=== PATIENT | male | born 1960 | race Caucasian/White ===

== ENCOUNTER → 2017-11-23 12:09 | Outpatient (CLI) | payer BC, SELFPAY ==
[2017-11-23 13:44] LABS: Cholesterol 184 mg/dL (200); High Density Lipoprotein 52 mg/dL; Triglycerides 130 mg/dL; Very Low Density Lipoprotein 26 mg/dL (5-40)
[2017-11-23 13:51] LABS: Hemoglobin A1c 7.7 % (4.2-6.3)
== END ==
PROVIDERS: Family Provider Family Medicine; PCP Family Medicine; Visit Provider Family Medicine
DX: E11.9 Type 2 diabetes mellitus without complications (principal); E78.5 Hyperlipidemia, unspecified
CPT/HCPCS: 36415; 80061; 83036

== ENCOUNTER → 2018-03-05 08:40 | Outpatient (CLI) | payer BC, SELFPAY ==
[2018-03-05 10:05] LABS: Hemoglobin A1c 9.1 % (4.2-6.3)
== END ==
PROVIDERS: Family Provider Family Medicine; PCP Family Medicine; Visit Provider Family Medicine
DX: E11.9 Type 2 diabetes mellitus without complications (principal)
CPT/HCPCS: 36415; 83036

== ENCOUNTER → 2018-06-12 10:25 | Outpatient (CLI) | payer OTHER, SELFPAY ==
[2018-06-12 11:21] LABS: Hemoglobin A1c 7.7 % (4.2-6.3)
== END ==
PROVIDERS: Family Provider Family Medicine; PCP Family Medicine; Referring Provider Family Medicine; Visit Provider Family Medicine
DX: E11.9 Type 2 diabetes mellitus without complications (principal)
CPT/HCPCS: 36415; 83036

== ENCOUNTER → 2018-11-23 08:22 | Outpatient (CLI) | payer OTHER, SELFPAY ==
[2018-11-22 13:23] VITALS: BMI 32.4
[2018-11-23 12:47] LABS: ALB/GLOB Ratio 1.1 RATIO (0.9-2.4); AST(SGOT) 26 U/L (15-37); Alanine Aminotransfer ALT/SGPT 57 U/L (16-61); Albumin, Serum 4.1 g/dL (3.2-5.0); Alkaline Phosphatase 68 U/L (45-117); Anion Gap 7 (5-15); BUN 11 mg/dL (7-18); BUN/Creat Ratio 10.7 RATIO (10-20); Calcium,Total 9.2 mg/dL (8.5-10.1); Chloride 106 mmol/L (98-107); Cholesterol 185 mg/dL (200); Creatinine, Serum 1.03 mg/dL (0.70-1.30); EST Glomerular Filtration Rate 78 mL/min (>60); Est Glom Filt Rate - Afr Amer 95 mL/min (>60); Globulin 3.8 g/dL (2.2-4.2); Glucose 150 mg/dL (74-106); High Density Lipoprotein 52 mg/dL; Potassium 4.7 mmol/L (3.5-5.1); Protein, Total 7.9 g/dL (6.4-8.2); Sodium Level 142 mmol/L (136-145); Triglycerides 102 mg/dL; Very Low Density Lipoprotein 20 mg/dL (5-40)
== END ==
PROVIDERS: Family Provider Family Medicine; PCP Family Medicine; Visit Provider Family Medicine
DX: E11.9 Type 2 diabetes mellitus without complications (principal)
CPT/HCPCS: 36415; 80053; 80061

== ENCOUNTER → 2020-01-29 | Outpatient (CLI) | payer OTHER, SELFPAY ==
[2020-01-29 14:06] VITALS: BMI 32.4
[2020-01-29 15:40] LABS: ALB/GLOB Ratio 1.1 RATIO (0.9-2.4); AST(SGOT) 24 U/L (15-37); Alanine Aminotransfer ALT/SGPT 37 U/L (16-61); Albumin, Serum 4.1 g/dL (3.2-5.0); Alkaline Phosphatase 64 U/L (45-117); Anion Gap 7 (5-15); BUN 20 mg/dL (7-18); BUN/Creat Ratio 18.7 RATIO (10-20); Calcium,Total 9.9 mg/dL (8.5-10.1); Chloride 106 mmol/L (98-107); Cholesterol 159 mg/dL (200); Creatinine, Serum 1.07 mg/dL (0.70-1.30); EST Glomerular Filtration Rate 75 mL/min (>60); Est Glom Filt Rate - Afr Amer 90 mL/min (>60); Globulin 3.8 g/dL (2.2-4.2); Glucose 108 mg/dL (74-106); High Density Lipoprotein 53 mg/dL; Potassium 4.2 mmol/L (3.5-5.1); Protein, Total 7.9 g/dL (6.4-8.2); Sodium Level 142 mmol/L (136-145); Triglycerides 93 mg/dL; Very Low Density Lipoprotein 19 mg/dL (5-40)
[2020-01-29 19:00] LABS: Microalbumin,Random Urine 9.5 mg/L (NO RANGE EST.); Microalbumin:Creatinine Ratio 5.4 mg/g CRE (<30 mg/g CRE)
== END | disposition home or self-care (01) ==
LOC: BIMLAB 14:24
PROVIDERS: PCP Family Medicine; Referring Provider Family Medicine; Visit Provider Family Medicine
DX: E78.5 Hyperlipidemia, unspecified (principal); E11.9 Type 2 diabetes mellitus without complications
CPT/HCPCS: 36415; 80053; 80061; 82043; 82570

== ENCOUNTER → 2020-04-29 | Outpatient (CLI) | payer OTHER, SELFPAY ==
[2020-04-29 14:48] VITALS: BMI 32.4
[2020-04-29 17:18] LABS: Cholesterol 221 mg/dL (200); High Density Lipoprotein 56 mg/dL; Triglycerides 114 mg/dL; Very Low Density Lipoprotein 23 mg/dL (5-40)
== END | disposition home or self-care (01) ==
LOC: BIMLAB 15:13
PROVIDERS: PCP Family Medicine; Referring Provider Family Medicine; Visit Provider Family Medicine
DX: E78.2 Mixed hyperlipidemia (principal)
CPT/HCPCS: 36415; 80061

== ENCOUNTER → 2021-06-09 09:59 | Outpatient (CLI) | payer OTHER, SELFPAY ==
[2021-06-09 12:21] LABS: ALB/GLOB Ratio 0.9 RATIO (0.9-2.4); AST(SGOT) 20 U/L (15-37); Alanine Aminotransfer ALT/SGPT 41 U/L (16-61); Alkaline Phosphatase 64 U/L (45-117); Anion Gap 6 (5-15); BUN 15 mg/dL (7-18); BUN/Creat Ratio 10.3 RATIO (10-20); Calcium,Total 9.9 mg/dL (8.5-10.1); Chloride 102 mmol/L (98-107); Creatinine, Serum 1.45 mg/dL (0.70-1.30); EST Glomerular Filtration Rate 52 mL/min (>60); Est Glom Filt Rate - Afr Amer 63 mL/min (>60); Globulin 4.5 g/dL (2.2-4.2); Glucose 224 mg/dL (74-106); Lipase 85 U/L (73-393); Potassium 4.9 mmol/L (3.5-5.1); Protein, Total 8.5 g/dL (6.4-8.2); Sodium Level 136 mmol/L (136-145)
== END ==
PROVIDERS: PCP Family Medicine; Referring Provider Family Medicine; Visit Provider Family Medicine
DX: E11.9 Type 2 diabetes mellitus without complications (principal); R11.10 Vomiting, unspecified
CPT/HCPCS: 36415; 80053; 83690

== ENCOUNTER → 2021-06-10 08:46 | Outpatient (CLI) | payer OTHER, SELFPAY ==
--- NOTE | 2021-06-10 08:48 | US_ITS ---
STUDY: ABDOMINAL ULTRASOUND - RIGHT UPPER QUADRANT REASON FOR VISIT: Male, 61 years old epigastric pain TECHNIQUE: Ultrasound evaluation of the right upper quadrant was performed with real-time and static lal-scale imaging. TECHNICAL QUALITY: Adequate. COMPARISON: None. FINDINGS: Liver: The liver measures 17.7 cm. There is increased echogenicity consistent with fatty infiltration. Focal fatty sparing is seen adjacent to the gallbladder fossa. The bile ducts are within normal limits. There is hepatic color flow. The direction of portal flow is hepatopetal. There is no demonstrated mass lesion. Gallbladder: Normal distended gallbladder. The gallbladder wall measures 2.5 mm. There is a negative sonographic London''s sign. There is no pericholecystic fluid. There is a solitary echogenic gallstone within the gallbladder. Sludge is seen within the gallbladder lumen. Common Bile Duct (C.B.D.): The common bile duct measures mm. Pancreas: There is nonvisualization of the pancreas due to overlying bowel gas.. Right Kidney: Normal size of the right kidney. The right kidney measures 13.1 cm x 6.5 cm x 6.8 cm. Normal renal cortex. The right cortex measures 2.4 cm. There is no demonstrated renal mass or cyst. There is no right hydronephrosis. US/Gallbladder IMPRESSION: Fatty infiltration of the liver. Solitary gallstone measuring 2.3 cm. Electronically Signed: Ang Landa MD at 14:33 EDT , Service support ,
--- NOTE | 2021-06-10 08:49 | RAD_ITS ---
STUDY: X-RAY - RIGHT SHOULDER REASON FOR EXAM: Male, 61 years old. PAIN TECHNIQUE: 4 view(s) of the shoulder. COMPARISON: None. FINDINGS: Normal glenohumeral articulation. Normal acromioclavicular joint. Normal acromion. Normal humeral head and visualized proximal humerus. The soft tissue structures are unremarkable. There is no demonstrated fracture. Normal visualized pulmonary apex. RAD/Shoulder min 2 Views IMPRESSION: Normal x-ray examination of the shoulder. Electronically Signed: Kieran Nelson MD at 16:47 EDT , Service support ,
== END ==
PROVIDERS: PCP Family Medicine; Referring Provider Family Medicine; Visit Provider Family Medicine
DX: M25.511 Pain in right shoulder (principal); R11.10 Vomiting, unspecified
CPT/HCPCS: 73030; 76705

== ENCOUNTER 2022-03-15 08:00 | Outpatient (RCR) | payer OTHER, SELFPAY ==
--- NOTE | 2022-01-07 16:03 | HP.PTEVAL_ITS ---
Patient's Visit Information KELLY WARNER is a 61 year old M referred to Physical Therapy by Dr. Dawit De La Garza DO with a diagnosis of PAIN IN UNSPECIFIED SHOULDER. Date of Evaluation: 01/07/22 Physical Therapist: Tommy Adams, PT, Cert MDT, OCS - Visit Plan Frequency: 2x /Week Duration: 4 Weeks Plan: PT INTERVENTIONS POSTURAL EX'S ,RTC/SCAPULAR STRENGTHENING ,ROM/FLEXABILITY AND MODALTIES NEEDED - Subjective This 61 y/o male presents to physical therapy with with bilateral shoulder pain. Patient has shoulder pain for ~ 1 year last cutting branches and throwing in dumbstruck. Patient symptoms progressively worse. Pain located global and biceps decried as ache. Patient seen DR recommended PT did x-rays -. Tried some cane ex's for stretching. Aleve over counter. Aggravating factors reaching across body ,to side , and behind back. Alleviating factors rest. Symptoms affects sleeping unable to lay on side. Pain with attempting throw ball. Denies paresthesia/tingling. Patient pain affects QOL and function. SOCIAL: . VOCATION: retired - Pain Bilateral Shoulder Pain Intensity (Out of 10): 7 Pain Intensity Range: 10 Comment: certain movements - Objective POSTURE: rounded shoulders. NUERO: denies paresthesia/tingling. PALAPTION: unremarkable. AROM: bilateral shoulder flexion 140 degrees ,abduction 150 degrees ,ER 90 degrees, IR L3-4. MMT( peak force) : infraspinatus R -17.3, L- 16.7 ,subscapularis R- 17.0,L-21.8 ,supraspinatus R -11.1,L -12.8 ,DETOID R- 12.7,L 13.2. FLEXABILITY: posterior capsule mild/mod. MMT: in. MMT - Special Tests R Shoulder Lift Off Test - Subscapular Tear: Negative R Shoulder Drop Sign - IS Test: Negative R Shoulder Empty Can - SS: Positive R Shoulder Belly Press - SupScap: Negative R Shoulder Neer - Impingement: Positive R Shoulder Sampson Javier - Impingement: Positive R Shoulder Speeds Test - Labrum/Biceps: Negative L Shoulder Drop Sign - IS Test: Negative L Shoulder Empty Can - SS: Positive L Shoulder Belly Press - SupScap: Negative L Shoulder Neer - Impingement: Positive L Shoulder Speeds Test - Labrum/Biceps: Positive - Balance/Special Test Scores Quick DASH Score: 31.8175 - Goals Goal 1:: Patient to be I with HEP for shoulders Goal Time Frame: 4-6 Weeks Goal 2:: Patient to improve posture for ADL's 90% of the time. Goal Time Frame: 4-6 Weeks Goal 3:: Patient to demonstrate 50% improvement with improved function with dexcrease pain. Goal Time Frame: 4-6 Weeks Goal 4:: Patient to improve MMT peak force by 5-10 to improve function with ADLS and reaching with yard and housework. Goal Time Frame: 4-6 Weeks Goal 5:: Patient to improve quick dash by 5 points to improve function with ADLS' and housework Goal Time Frame: 4-6 Weeks - Rehabilitation Potential Physical Therapy Diagnosis: This patient has bilateral shoulder pain with possible impingement with possible tendinosis ,pain ,decrease ROM ,strength RTC and deltoid pain, impairs function with ASDLS and housework tasks reaching thus benefit from skilled PT. Rehabilitation Potential: Good - Anticipated Interventions Patient/Client Instruction: Educate patient on: Condition, Plan of Care For the Purpose of:: To decrease pain, To increase ROM, To improve muscle performance and motor function, To improve ability to perform ADL's, To increase tolerance to activity/condition/position, To improve performance and independence with ADL's, To improve ability of physical actions for home/community/work/leisure, To improve health of tissue, To decrease soft tissue restriction, To increase flexibility/ROM, To prevent re-injury, To improve tolerance to ADL's Therapeutic Exercise to Include: Strength training, Postural training, Flexibilty training, Passive ROM, Active ROM, Scapular Strength/Stabilization Comment: RTC For the Purpose of:: To decrease pain, To increase ROM, To improve muscle performance and motor function, To improve ability to perform ADL's, To increase tolerance to activity/condition/position, To improve ability of physical actions for home/community/work/leisure, To improve health of tissue, To decrease soft tissue restriction, To increase flexibility/ROM, To prevent re-injury, To improve tolerance to ADL's TENS: Yes IF ES: Yes Cryotherapy (ice pack, ice massage): Yes Thermo therapy (hot pack): Yes Ultrasound (thermal/non thermal): Yes For the Purpose of:: To decrease pain, To increase ROM, To improve health of tissue, To decrease soft tissue restriction Thank you for the opportunity to evaluate your patient. For Medicare and Medicare HMO plans, please review the plan of care and approve it. It will need to be FAXED BACK to us at [phone] for Medicare purposes. For Medicare only, by signing this I certify the plan of care. Please let me know if there are questions or concerns regarding this plan of care. Physician Signature: Date:
--- NOTE | 2022-06-23 11:25 | HP.PTDCSUM ---
It has been my pleasure to treat KELLY WARNER referred by Dr. Dawit De La Garza DO, with the diagnosis of PAIN IN UNSPECIFIED SHOULDER for a total of 10 visit(s). Discharge Date: Please see the following information for a summary of their discharge status. Subjective: Bicep soreness on vacation..had a occasional sharp pain. otherwise right shoulder worse than left Bilateral Shoulder Pain Intensity (Out of 10): 0 % Improvement: 75 Objective/Function: RTC/DELTOID 4/5 NO PAIN. ROM IMPROVING WITH LESS PAIN. APPROPRIATE FATIGUE WITH STRENGTHEING Goal 1:: Patient to be I with HEP for shoulders Goal 2:: Patient to improve posture for ADL's 90% of the time. Goal 3:: Patient to demonstrate 50% improvement with improved function with dexcrease pain. Goal 4:: Patient to improve MMT peak force by 5-10 to improve function with ADLS and reaching with yard and housework. Goal 5:: Patient to improve quick dash by 5 points to improve function with ADLS' and housework Plan: D/C If there are questions or concerns regarding this patient's physical therapy, please feel free to call me at [phone]. Thank you for the referral of this patient. Sincerely, Tommy Adams, PT, Cert MDT, OCS Balance/Gait/Functional tests - Balance/Special Test Scores Quick DASH Score: 6.8175
== END 2022-03-15 19:00 | disposition home or self-care (01) ==
LOC: PT 08:00
PROVIDERS: PCP Family Medicine; Referring Provider Family Medicine; Visit Provider Family Medicine
DX: M25.519 Pain in unspecified shoulder (principal)
CPT/HCPCS: 97110; 97162

== ENCOUNTER → 2022-06-22 | Outpatient (CLI) | payer OTHER, SELFPAY ==
[2022-06-22 13:16] LABS: Microalbumin,Random Urine 9.6 mg/L (NO RANGE EST.); Microalbumin:Creatinine Ratio 6.6 mg/g CRE (<30 mg/g CRE)
[2022-06-22 13:25] LABS: ALB/GLOB Ratio 1.1 RATIO (0.9-2.4); AST(SGOT) 40 U/L (15-37); Alanine Aminotransfer ALT/SGPT 80 U/L (16-61); Albumin, Serum 4.1 g/dL (3.2-5.0); Alkaline Phosphatase 70 U/L (45-117); Anion Gap 5 (5-15); BUN 15 mg/dL (7-18); BUN/Creat Ratio 13.9 RATIO (10-20); Calcium,Total 9.6 mg/dL (8.5-10.1); Chloride 103 mmol/L (98-107); Cholesterol 157 mg/dL (200); Creatinine, Serum 1.08 mg/dL (0.70-1.30); EST Glomerular Filtration Rate 73 mL/min (>60); Est Glom Filt Rate - Afr Amer 89 mL/min (>60); Globulin 3.7 g/dL (2.2-4.2); Glucose 230 mg/dL (74-106); High Density Lipoprotein 55 mg/dL; Potassium 4.9 mmol/L (3.5-5.1); Protein, Total 7.8 g/dL (6.4-8.2); Sodium Level 136 mmol/L (136-145); Triglycerides 76 mg/dL; Very Low Density Lipoprotein 15 mg/dL (5-40)
== END | disposition home or self-care (01) ==
LOC: BIMLAB 11:03
PROVIDERS: PCP Family Medicine; Referring Provider Family Medicine; Visit Provider Family Medicine
DX: E11.9 Type 2 diabetes mellitus without complications (principal); E78.5 Hyperlipidemia, unspecified
CPT/HCPCS: 36415; 80053; 80061; 82043; 82570

== ENCOUNTER → 2023-06-13 | Outpatient (CLI) | payer MEDICARE, SELFPAY ==
[2023-06-13 16:43] LABS: Absolute Lymphocyte Count 2.24 X10^3/uL (0.83-4.51); Absolute Neutrophil Count 5.9 X10^3/uL (2.0-7.7); Basophil# 0.08 X10^3/uL; Basophil% 0.8 % (0-1); Eosinophil# 0.23 X10^3/uL; Eosinophils% 2.4 % (0-5); Hematocrit 44.8 % (40-54); Hemoglobin 14.9 g/dL (13.0-16.5); Lymphocyte # 2.24 X10^3/ul (0.83-4.51); Lymphocyte % 23.8 % (19-41); Mean Corp Hgb Conc 33.3 g/dL (32-36); Mean Corpuscular Hgb 31.2 pg (27.0-32.0); Mean Corpuscular Volume 93.7 fL (80-94); Mean Platelet Vol. 11.4 fl (6.2-12.0); Monocyte# 0.94 X10^3/uL; NRBC Flagged by Analyzer 0 % (0-5); Neutrophil # 5.89 X10^3/uL (2.7-7.7); Neutrophil % 62.6 % (47-70); Platelet Count 277 K/mm3 (150-450); RBC Distribution Width CV 12.6 % (11.6-14.6); RBC Distribution Width SD 43.3 fl (35.1-43.9); Red Blood Count 4.78 M/mm3 (4.6-6.2); White Blood Count 9.4 K/mm3 (4.4-11.0)
[2023-06-13 18:39] LABS: AST(SGOT) 27 U/L (15-37); Alanine Aminotransfer ALT/SGPT 56 U/L (16-61); Alkaline Phosphatase 63 U/L (45-117); Anion Gap 6 (5-15); BUN 14 mg/dL (7-18); BUN/Creat Ratio 14.1 RATIO (10-20); Calcium,Total 9.1 mg/dL (8.5-10.1); Chloride 108 mmol/L (98-107); Cholesterol 148 mg/dL (200); EST Glomerular Filtration Rate 80 mL/min (>60); Est Glom Filt Rate - Afr Amer 97 mL/min (>60); Globulin 3.9 g/dL (2.2-4.2); Glucose 115 mg/dL (74-106); High Density Lipoprotein 50 mg/dL; PSA,Total- Diagnostic 0.84 ng/mL (0.0-4.0); Protein, Total 7.9 g/dL (6.4-8.2); Sodium Level 140 mmol/L (136-145); Triglycerides 121 mg/dL; Very Low Density Lipoprotein 24 mg/dL (5-40)
== END | disposition home or self-care (01) ==
PROVIDERS: PCP Family Medicine; Visit Provider Family Medicine
DX: E11.9 Type 2 diabetes mellitus without complications (principal); R35.1 Nocturia; R11.10 Vomiting, unspecified
CPT/HCPCS: 36415; 80053; 80061; 84153; 85025

== ENCOUNTER 2023-06-23 21:47 | Emergency (ER) | payer MEDICARE, SELFPAY ==
[2023-06-23 21:48] VITALS: BP 132/78; PULSE 106; RESP 20; TEMP 36.2; O2SAT 98; BMI 32.4
[2023-06-23 21:50] VITALS: BP 116/68; PULSE 65; RESP 12; TEMP 36.6; O2SAT 99
--- NOTE | 2023-06-23 22:25 | US_ITS ---
STUDY: ABDOMINAL ULTRASOUND - RIGHT UPPER QUADRANT REASON FOR VISIT: Male, 63 years old RUQ pain TECHNIQUE: Ultrasound evaluation of the right upper quadrant was performed with real-time and static lal-scale imaging. TECHNICAL QUALITY: Adequate. COMPARISON: None. FINDINGS: Liver: The liver measures 21 cm. There is increased echogenicity consistent with fatty infiltration. The bile ducts are within normal limits. There is hepatic color flow. The direction of portal flow is hepatopetal. There is no demonstrated mass lesion. Stable 1.5 x 1.7 x 0.9 cm hypoechoic lesion adjacent to the gallbladder probably represents focal fatty sparing. Gallbladder: Normal distended gallbladder. The gallbladder wall measures mm. There is a negative sonographic London''s sign. There is no pericholecystic fluid. Gallstone measures 1.9 cm and sludge. Common Bile Duct (C.B.D.): The common bile duct measures 4 mm mm. Pancreas: Not visualized. Right Kidney: Normal size of the right kidney. The right kidney measures 11.7 cm. Normal renal cortex. The right cortex measures 1.5 cm. There is no demonstrated renal mass or cyst. There is no right hydronephrosis. US/Gallbladder IMPRESSION: Large gallstone and sludge. No evidence of cholecystitis or cholelithiasis. Hepatic steatosis and hepatomegaly with interval enlargement. Electronically Signed: Omar Kerr MD at 0:04 EDT ,
--- NOTE | 2023-06-23 22:38 | EDS_ITS ---
HPI History of Present Illness Chief Complaint: Fever Informant: patient and spouse/S.O. Narrative Narrative: Patient is a 63-year-old male with past medical history of type 2 diabetes and hyperlipidemia. He states that roughly 2 years ago he was diagnosed with g allstones. He states however that his symptoms spontaneously improved and therefore he never had surgery to remove the gallbladder. He reports a few days ago he had pain in the right upper abdomen for approximately 24 hours that felt similar to a gallbladder attack. He states with this he is also been having intermittent fevers reaching 102-103. He states that there is been mild congestion cough and sore throat and that his grandkids have been sick as well. He states he is unsure if his intermittent fevers are related to the same illness as his grandkids are potentially rated to a gallbladder infection and therefore he comes in for evaluation. [facility] Medical History Hearing loss Hyperlipemia Type 2 diabetes mellitus Home Medications aspirin 81 mg chewable tablet PO 11/22/17 [History Last Taken Unknown] multivitamin 1 tab PO QAM 11/22/17 [History Last Taken Unknown] simvastatin 10 mg tablet 10 mg PO QHS #90 tabs 08/10/22 [Rx Last Taken Unknown] glimepiride 4 mg tablet 4 mg PO QAM #90 tabs 12/15/22 [Rx Last Taken Unknown] metformin 500 mg tablet,extended release 24 hr See Rx Instructions .Route .COMPLEX #90 tabs 03/16/23 [Rx Last Taken Unknown] cephalexin 500 mg capsule 500 mg PO TID 7 days #21 caps 06/24/23 [Rx Last Taken Unknown] Allergy/AdvReac Type Severity Reaction Status Date / Time No Known Allergies Allergy Unverified 06/13/23 15:18 Family History Father Cancer stomach Mother Myocardial infarction Hypertension Lupus Hyperlipemia Diabetes Brother Cancer bladder Diabetes Sister Diabetes Surgical History History of tonsillectomy History of vasectomy removal of lump on wrist repair nerve in wrist Status post trigger finger release Social History Smoking Status: Never smoker alcohol intake: never substance use type: does not use what type of physical activity do you participate in: none ROS ROS ED Constitutional Constitutional ED: Reports chills and fever(s) ENT ENT ED: Reports sore throat Cardiovascular Cardiovascular: Denies chest pain Respiratory/Chest Respiratory/Chest: Reports cough; Denies dyspnea Gastrointestinal Gastrointestinal: Reports abdominal pain and nausea; Denies diarrhea or vomiting Genitourinary Genitourinary ED: Denies dysuria Musculoskeletal Musculoskeletal: Denies back pain or myalgias Integumentary Denies rash Neurologic Neurologic: Denies headache(s) Hematologic/Lymphatic Hematologic/Lymphatic: Denies easy bleeding or easy bruising EXAM Physical Exam Const Vital Signs: 06/23/23 21:48 06/23/23 21:50 06/23/23 21:47 Temperature 97.2 F L 97.8 F Temperature Source Temporal Temporal Pulse Rate 106 H 65 Respiratory Rate 20 H 12 Respiratory Effort Normal Respiratory Pattern Normal Blood Pressure 132/78 H 116/68 Blood Pressure Mean 96 84 Pulse Ox 98 99 Oxygen Delivery Method Room Air Room Air Positive well nourished and well developed General Appearance ED: well developed; Negative for pallor HEENT Reports moist mucous membranes HEENT Narrative: Cobblestoning noted in the posterior pharynx consistent with sinus drainage without secondary changes to suggest infection No airway edema or compromise Eyes PERRL and EOMs intact bilaterally General Eye ED: Negative for scleral icterus Neck supple Neck Narrative: No nuchal rigidity or meningeal signs noted Resp normal respiratory effort Resp Narrative: Faint rhonchi noted in the left lower lobe Cardio regular rate and regular rhythm Rate: other Other Details: Heart is regular rate and rhythm without murmurs rubs or gallops GI non-distended GI Narrative: Abdomen is soft and nondistended with normal active bowel sounds. There is pain on palpation in the right upper quadrant without voluntary guarding or rigidity. Negative London sign. No pulsatile mass or fluid wave Auscultation: normoactive bowel sounds Palpation: soft Back/Spine no CVA tenderness Extremity normal to inspection Extremity Narrative: No asymmetric edema no pitting edema negative Homans' sign bilaterally Neuro oriented x3, CN's II-XII intact bilaterally and no sensory deficits noted Sensorium / Orientation: alert Motor Exam: strength 5/5 throughout Psych mental status grossly normal Skin no rashes or lesions noted General Skin Exam: Negative for jaundice or pallor MDM MDM MDM Narrative Medical decision making narrative: Patient presented to the ER afebrile. He reported intermittent fevers for the past 5 days. He also reported a bout of abdominal pain in the right upper quadrant for approximately 24 hours. Differential diagnosis is for biliary colic versus acute cholecystitis versus pancreatitis versus pneumonia versus UTI versus viral infection. Secondary to this basic blood work with urine sample chest x-ray and a gallbladder ultrasound was performed. Blood work shows no leukocytosis or left shift/lactic acidosis. The patient's chest x-ray question is developing infiltrate but he is only had a minimal cough and he is not in respiratory distress or hypoxic therefore this is most likely viral streaking. Ultrasound of the gallbladder showed a large gallstone but no signs of acute cholecystitis. Urine however did show changes concerning for infection and therefore the urine will be sent for culture. At this time he is not showing changes concerning for urosepsis or acute kidney injury so he can be placed on oral antibiotics and discharged home. History & Record Review Discussion w/independent historian: Patient and Significant other Lab Data Attestation: I reviewed the patient's lab results. Labs: Laboratory Results - last 24 hr 06/23/23 06/23/23 22:40 23:48 WBC 10.5 RBC 4.42 L Hgb 13.8 Hct 41.3 MCV 93.4 MCH 31.2 MCHC 33.4 RDW Std Deviation 42.5 RDW Coeff of Wili 12.2 Plt Count 297 MPV 10.9 Immature Gran % (Auto) 0.800 Neut % (Auto) 66.1 Lymph % (Auto) 17.6 L Whitley % (Auto) 10.4 H Eos % (Auto) 4.1 Baso % (Auto) 1.0 Absolute Neuts (auto) 6.9 Absolute Lymphs (auto) 1.85 Nucleated RBC % 0 Sodium 138 Potassium 3.8 Chloride 105 Carbon Dioxide 28.0 Anion Gap 5 BUN 19 H Creatinine 1.10 Estim Creat Clear Calc 73.48 Est GFR (MDRD) Af Amer 86 Est GFR (MDRD) Non-Af 71 BUN/Creatinine Ratio 17.3 Glucose 190 H Lactic Acid 1.3 Calcium 9.0 Total Bilirubin 1.00 Direct Bilirubin 0.31 H AST 14 L ALT 31 Alkaline Phosphatase 61 Total Protein 7.4 Albumin 3.0 L Globulin 4.4 H Lipase 43 Urine Color Yellow Urine Clarity Clear Urine pH 5.0 Ur Specific Bonaparte 1.025 Urine Protein 15 H Urine Glucose (UA) Normal Urine Ketones Negative Urine Occult Blood Negative Urine Nitrite Negative Urine Bilirubin Negative Urine Urobilinogen 4 H Ur Leukocyte Esterase 25 H Urine RBC 0 SEEN Urine WBC 5-10 SEEN Ur Squamous Epith Cells 0-5 SEEN Urine Bacteria 3+ Urine Mucus 0 SEEN Radiography Diagnostic Testing: Clinical Impression(s) from Imaging Studies Gallbladder Ultrasound 06/23/23 22:25 IMPRESSION: Large gallstone and sludge. No evidence of cholecystitis or cholelithiasis. Hepatic steatosis and hepatomegaly with interval enlargement. Electronically Signed: Omar Kerr MD at 0:04 EDT , Chest X-Ray 06/23/23 23:00 IMPRESSION: Possible small right lower lobe and reticular nodular infiltrate Electronically Signed: Omar Kerr MD at 23:16 EDT Reading Location ID and State: [facility] / [place] Tel , Service support , 2 view chest x-ray is interpreted by the emergency medicine physician reveals haziness in the right lower lobe concerning for developing right lower lobe infiltrate without pneumothorax or pleural effusion Discharge Plan Triage Chief Complaint: Fever ED Provider: Dragan Godoy Dx/Rx/DC Orders Clinical Impression: UTI (urinary tract infection), Cholelithiasis, Biliary colic, Type 2 diabetes mellitus Instructions: Urinary Tract Infections in Men, ED Gallstones with Biliary Colic Prescriptions: New cephalexin 500 mg capsule 500 mg PO TID 7 Days Qty: 21 0RF No Action aspirin 81 mg tablet,chewable PO multivitamin tablet 1 tab PO QAM glimepiride 4 mg tablet 4 mg PO QAM Qty: 90 1RF Rx Instructions: administer with breakfast metformin 500 mg tablet extended release 24 hr See Rx Instructions .ROUTE .COMPLEX Qty: 90 2RF Dose Instruction: Take 1 tablet by mouth once daily Rx Instructions: Take 1 tablet by mouth once daily simvastatin 10 mg tablet 10 mg PO QHS Qty: 90 3RF Primary Care Provider: Dawit De La Garza Referrals: Brown,Dawit R, DO [Primary Care Provider] - Activity Restrictions/Additional Instructions: Please take your antibiotic as directed to resolve your UTI. The urine was sent for culture which will tell us what bacteria and antibiotic are appropriate but not for approximately 2 or 3 days. You will only be notified if the antibiotic that was given to you today is not appropriate. You also have a large gallstone noted on ultrasound and therefore talk to general surgery about potential gallbladder removal/cholecystectomy. Eat smaller more frequent meals that are low in fat content to help reduce any further exacerbations from the gallbladder. Return to the ER should you have any further concerns Disposition Disposition: Home, Self Care Discharge Date/Time: 06/24/23 00:43
--- NOTE | 2023-06-23 23:00 | RAD_ITS ---
STUDY: X-RAY CHEST REASON FOR EXAM: Male, 63 years old. fever TECHNIQUE: Frontal and lateral views of the chest. COMPARISON: None. FINDINGS: Possible small reticulonodular infiltrate right lower lung field. There is no demonstrated pleural abnormality. Normal size heart. Normal mediastinum and ro. Normal visualized pulmonary arteries. Normal visualized aortic arch and descending thoracic aorta. Normal visualized thoracic spine. Normal visualized ribs, clavicles, and shoulders. There is no demonstrated abnormality of the visualized soft tissue structures of the upper abdomen. RAD/Chest PA and Lateral IMPRESSION: Possible small right lower lobe and reticular nodular infiltrate Electronically Signed: Omar Kerr MD at 23:16 EDT ,
[2023-06-23 23:06] LABS: Absolute Lymphocyte Count 1.85 X10^3/uL (0.83-4.51); Absolute Neutrophil Count 6.9 X10^3/uL (2.0-7.7); Eosinophil# 0.43 X10^3/uL; Eosinophils% 4.1 % (0-5); Hematocrit 41.3 % (40-54); Hemoglobin 13.8 g/dL (13.0-16.5); Lymphocyte # 1.85 X10^3/ul (0.83-4.51); Lymphocyte % 17.6 % (19-41); Mean Corp Hgb Conc 33.4 g/dL (32-36); Mean Corpuscular Hgb 31.2 pg (27.0-32.0); Mean Corpuscular Volume 93.4 fL (80-94); Mean Platelet Vol. 10.9 fl (6.2-12.0); Monocyte# 1.09 X10^3/uL; Monocyte% 10.4 % (0-10); NRBC Flagged by Analyzer 0 % (0-5); Neutrophil # 6.94 X10^3/uL (2.7-7.7); Neutrophil % 66.1 % (47-70); Platelet Count 297 K/mm3 (150-450); RBC Distribution Width CV 12.2 % (11.6-14.6); RBC Distribution Width SD 42.5 fl (35.1-43.9); Red Blood Count 4.42 M/mm3 (4.6-6.2); White Blood Count 10.5 K/mm3 (4.4-11.0)
[2023-06-23 23:17] LABS: AST(SGOT) 14 U/L (15-37); Alanine Aminotransfer ALT/SGPT 31 U/L (16-61); Alkaline Phosphatase 61 U/L (45-117); Anion Gap 5 (5-15); BUN 19 mg/dL (7-18); BUN/Creat Ratio 17.3 RATIO (10-20); Bilirubin, Direct 0.31 mg/dL (0.00-0.30); Chloride 105 mmol/L (98-107); EST Glomerular Filtration Rate 71 mL/min (>60); Est Glom Filt Rate - Afr Amer 86 mL/min (>60); Estimated Creatinine Clearance 73.48 ml/min; Globulin 4.4 g/dL (2.2-4.2); Glucose 190 mg/dL (74-106); Lipase 43 U/L (13-75); Potassium 3.8 mmol/L (3.5-5.1); Protein, Total 7.4 g/dL (6.4-8.2); Sodium Level 138 mmol/L (136-145)
[2023-06-23 23:26] LABS: Lactic Acid 1.3 mmol/L (0.4-1.9)
[2023-06-23 23:53] LABS: Mucous, Urine 0 SEEN /hpf (<or=2+); Red Blood Cells-Urine 0 SEEN /hpf (0-5)
[2023-06-23 23:54] LABS: Color, Urine Yellow (Yellow); Glucose, Dipstick Normal (Normal); Ketone-Dipstick Negative (Negative); Leukocyte Esterase-Dipstick 25 /ul (Negative); Nitrite-Dipstick Negative (Negative); Occult Blood-Urine Negative /ul (Negative); Protein-Dipstick 15 mg/dl (Negative); Specific Gravity, Urine 1.025 (1.002-1.030); Urine Bilirubin Dipstick Negative (Negative); Urine Clarity Clear (Clear); Urine Urobilinogen 4 mg/dl (Normal)
[2023-06-24 00:01] LABS: Bacteria 3+ /hpf (None Seen); Squamous Epithelial Cells - UA 0-5 SEEN /hpf (0-5); White Blood Cells 5-10 SEEN /hpf (0-5)
[2023-06-24] MEDS: Cephalexin 250 MG Capsule 500 MG PO (00:41)
== END 2023-06-24 00:43 | disposition home or self-care (01) ==
PROVIDERS: Emergency Provider Emergency Medicine; PCP Family Medicine; Visit Provider Emergency Medicine
DX: N39.0 Urinary tract infection, site not specified (principal); E11.9 Type 2 diabetes mellitus without complications; K80.70 Calculus of gallbladder and bile duct without cholecystitis without obstruction; E78.5 Hyperlipidemia, unspecified
CPT/HCPCS: 71046; 76705; 80048; 80076; 81001; 83605; 83690; 85025; 87086; 87088; 87428; 99283; A4216

== ENCOUNTER → 2023-06-26 | Outpatient (CLI) | payer MEDICARE, SELFPAY ==
--- NOTE | 2023-06-26 13:51 | CT_ITS ---
STUDY: CT ABDOMEN AND PELVIS WITH CONTRAST REASON FOR EXAM: Male, 63 years old. Abdominal pain. RADIATION DOSAGE (If Supplied By Facility): CTDIvol = ( 16.08 ) mGy, DLP = ( 1217.09 ) mGycm TECHNIQUE: Transaxial images were obtained from the dome of the diaphragm to the symphysis pubis without oral contrast. IV 100mL Isovue-300 was administered. Sagittal and coronal images were reconstructed. Individualized dose optimization techniques were used for this CT. COMPARISON: Comparison is made with prior ultrasound of the right upper quadrant dated June 23, 2023. FINDINGS: The visualized lung bases are unremarkable. The visualized portions of the heart are within normal limits. There is decreased attenuation of the liver consistent with steatosis. There are multiple gallstones. Thickening of the gallbladder wall with findings suggestive of mild degree of pericholecystic fluid. The common bile duct measures upper normal. Normal spleen. Normal pancreas. Normal bilateral adrenal glands. Normal right kidney. Normal left kidney. Normal visualized stomach. Normal small intestine. There are scattered colonic diverticula consistent with diverticulosis. The appendix is visualized and appears normal. Normal abdominal aorta. Normal inferior vena cava. Normal retroperitoneum. Distended urinary bladder. Normal abdominal wall. Normal osseous structures. CT/Abdomen/Pelvis W IV Cont ONLY IMPRESSION: Gallstones. Thickened gallbladder wall with the findings suggest a very small amount of pericholecystic fluid. Fatty infiltration of the liver. Electronically Signed: Ang Landa MD at 15:26 EST ,
== END | disposition home or self-care (01) ==
LOC: CT 13:50
PROVIDERS: PCP Family Medicine; Referring Provider Family Medicine; Visit Provider Family Medicine
DX: R10.9 Unspecified abdominal pain (principal)
CPT/HCPCS: 74177; Q9967

== ENCOUNTER 2023-07-27 12:18 | Observation (INO) | payer MEDICARE, SELFPAY ==
[2023-07-27] VITALS (17 sets, daily range): BP systolic 125–165; BP diastolic 71–104; PULSE 18–105; RESP 16–18; TEMP 36.3–37.2; O2SAT 92–99; BMI 31.6
--- NOTE | 2023-07-27 | GALL_PTH ---
PATIENT: KELLY WARNER LOC: MS3 U#:[id number] AGE/SX: 63/M ROOM: LA317 RE07/27/[address]: Dr. James Keller MD : 1960 BED: 1 DIS: 07/28/2023 SPEC #: [id number] RECD: 07/27/23 15:27 STATUS: JUAN CARLOS MCKEONAndrea #: [id number] DAY: 07/27/23 00:[address]: James Keller DEPT: SURGICAL PATHOLOGY RECD BY: Abram Lamar ENTERED: 07/28/23 08:43 SP TYPE: ROVERTO ENGLAND DR: Dr. Dawit De La Garza, DO Tissues: Gallbladder, NOS Procedures: Surgery Specimen Level III HEADER OPERATION: Laparoscopic, Cholecystectomy with IOC PRE-OP DIAGNOSIS: Acute cholecystitis TISSUE SUBMITTED: Gallbladder MICROSCOPIC DIAGNOSIS Gallbladder, cholecystectomy: Acute and chronic cholecystitis. See comment. SJ:andrew 07/31/2023 COMMENT Adherent piece of liver parenchymal tissue is also noted. A yellow-clifford calculus is noted. Case has been reviewed in consultation with Dr. Ron who concurs with the above diagnosis. IDC:[id number] MICROSCOPIC DESCRIPTION Slides are reviewed. GROSS DESCRIPTION Received is one container labeled with the patient's name and designated gallbladder. The specimen consists of a gallbladder measuring 8.5 x 3.8 x 3.5 cm. The external surface is smooth and glistening. Focally, it is granular, hemorrhagic and contains cautery artifact. The lumen of the gallbladder contains yellow-green mucoid bile and a single yellow-clifford calculus measuring 5.5 x 3.5 cm. The mucosa is bile-stained and without any mass lesions. The gallbladder wall averages 0.2 to 0.5 cm in thickness and is free of mass lesions. Meat Counter Worker sections of the gallbladder and the cystic duct at margin of resection are submitted in one cassette. / AM:andrew 07/28/2023 TC:2 CPT: 95865
[2023-07-27] MEDS: Lactated Ringers 1,000 ML 15 ML IV (09:41)
--- NOTE | 2023-07-27 09:57 | EKG12_ITS ---
Test Reason : PRE OP Blood Pressure : / mmHG Vent. Rate : 077 BPM Atrial Rate : 077 BPM P-R Int : 160 ms QRS Dur : 084 ms QT Int : 386 ms P-R-T Axes : 030 026 042 degrees QTc Int : 436 ms Normal sinus rhythm Normal ECG No previous ECGs available Confirmed by LOREE RICHARDSON, CATE ([id number]), editorial project manager AQUILINO ABBOTT ([id number]) on 08/01/2023 8:50:33 A M Referred By: James Keller Confirmed By:STEPHAN RALPH MD
--- NOTE | 2023-07-27 10:04 | PCM.HP.BLA ---
History and Physical Date of Admission: 07/27/23 Intake Vital Signs 06/23/2321:48 07/05/2315:03 Height 6 ft 6 ft 1 in Weight: 238 lb 4 oz BMI 31.4 BP 125/79 H Blood Pressure Location Lt brachial Position Sitting Respiration 18 Pulse 98 Pulse Source Monitor Temp 97.9 F Temp Source Temporal Pulse Oximetry (%) 98 Oxygen Delivery Method room air Intake Visit Reasons: GALLBLADDER Chief Complaint: gallbladder Accompanied by: Is patient in pain?: No Allergies No Known Allergies Allergy (Unverified 07/05/23 15:04) Medications aspirin 81 mg chewable tablet PO 11/22/17 [History Confirmed 07/05/23] multivitamin 1 tab PO QAM 11/22/17 [History Confirmed 07/05/23] simvastatin 10 mg tablet 10 mg PO QHS #90 tabs 08/10/22 [Rx Confirmed 07/05/23] glimepiride 4 mg tablet 4 mg PO QAM #90 tabs 12/15/22 [Rx Confirmed 07/05/23] metformin 500 mg tablet,extended release 24 hr See Rx Instructions .Route .COMPLEX #90 tabs 03/16/23 [Rx Confirmed 07/05/23] cephalexin 500 mg capsule 500 mg PO TID 7 days #21 caps 06/24/23 [Rx Confirmed 07/05/23] PFSH Medical History (Updated 07/05/23 @ 15:[address] James Keller MD) Gallstones Hearing loss Hyperlipemia Type 2 diabetes mellitus Surgical History History of tonsillectomy History of vasectomy removal of lump on wrist repair nerve in wrist Status post trigger finger release Family History Father Cancer stomachMother Myocardial infarction Hypertension Lupus Hyperlipemia DiabetesBrother Cancer bladder DiabetesSister Diabetes Social History Smoking Status: Never smoker alcohol intake: never substance use type: does not use what type of physical activity do you participate in: none HPI HPI HPI: Patient is a 63-year-old male here with gallbladder issues. Patient has had a few attacks in the epigastric region which his primary doctor believes is related to his gallbladder. Patient was recently in the emergency room and had an ultrasound showing gallstones. Patient is in no pain currently. He denies any nausea or vomiting. He denies any fevers or chills. ROS General General: No weight change, appetite, fatigue, colon cancer, breast cancer or weakness HEENT HEENT: No difficulty swallowing, eye injury, eye surgery, swollen glands or hoarseness Endo Endocrine: Yes diabetes mellitus; No thyroid disease, thyroid cancer, Hair loss, heat intolerance or cold intolerance Skin Skin: No rash or changing moles Breast Breast: No left breast lump, right breast lump, nipple discharge, breast pain, abnormal mammogram, abnormal US or breast enlargement Musc Musculoskeletal: No back problems, arthritis, rheumatoid arthritis, gout or joint pain Cardio Cardiovascular: No murmur, pacemaker, heart disease, atrial fibrillation, high blood pressure, heart attack, heart stent, palpitations, shortness of breat with exertion or chest pain Psych Psychiatric: No depression, anxiety or hearing voices Resp Respiratory: No shortness of breath, No sleep apnea, No cough, No COPD, No asthma, No emphysema and No wheezing Gastro Gastrointestinal: No abdominal pain, No nausea or vomiting, No diarrhea, No constipation, No blood in stool, No acid reflux, No hemorrhoids, No ulcers, Yes gallbladder problem and No black,tarry stools Uche Hematologic: Yes blood thinners, No blood disorders, No bleeding, No anemia and No blood clots Additional Details: baby aspirin Neuro Neurologic: No system reviewed and no additional complaints, except as documented, No as per HPI, No abnormal gait, No abnormal hearing, No abnormal movements, No abnormal speech, No behavioral changes, No burning sensations, No confusion, No convulsions, No disequilibrium, No dizziness, No localized weakness, No frequent falls, No headache(s), No lack of coordination, No loss of vision, No memory loss, No numbness, No other visual disturbances, No radicular pain, No restless legs, No sensory deficit, No syncope, No tingling, No tremor(s), No weakness and No other Exam Const General: cooperative Orientation: alert and oriented x3 HENMT Head: normal to inspection Neck Neck: normal visual inspection and full ROM Chest Chest palpation & inspection: normal inspection of the chest Resp Effort & Inspection: normal respiratory effort Auscultation: clear to auscultation bilaterally Cardio Rate: regular rate Rhythm: regular rhythm GI Inspection: non-distended Palpation: soft and nontender Skin General: no rashes or lesions noted Neuro General: patient alert and patient oriented x3 Extrem General: full ROM Psych Appearance: grossly normal Mental Status: mental status grossly normal Assessment and Plan Assessment and Plan (1) Cholelithiasis: Status: Inactive Qualifiers: Cholelithiasis location: gallbladder Cholecystitis presence: with cholecystitis Cholecystitis acuity: chronic Biliary obstruction: without biliary obstruction Qualified Code(s): K80.10 - Calculus of gallbladder with chronic cholecystitis without obstruction Plan: The patient had an ultrasound that showed stones in the gallbladder wall in the emergency room. Subsequently he had a CT scan which showed some mild thickening and pericholecystic fluid with large stone in the gallbladder. I discussed laparoscopic cholecystectomy with him. He is not tender currently but there is suggestion of a chronic cholecystitis and I recommended having cholecystectomy. I discussed the procedure in detail with the patient. I discussed the risks, benefits, and alternatives of the procedure. I discussed the risks including but not limited to bleeding, infection, injury to surrounding organs such as the liver, bile duct, bowels. I did discuss the possibility of having to convert to an open procedure as well as the possibility that if any injuries occurred this may necessitate further surgery at a tertiary care center. James Keller MD Pager: [facility] [address] [place] [address], [address] [place] [address] Office: I have examined the patient and the H&P has been reviewed. There are no clinical changes since date of exam.
[2023-07-27 10:08] LABS: Bedside Glucose 129 mg/dL (74-106)
[2023-07-27] MEDS: Cefotetan 2 GM in 0.9% NS 100 ML IV (10:45)
--- NOTE | 2023-07-27 11:01 | RAD_ITS ---
STUDY: INTRAOPERATIVE CHOLANGIOGRAM. REASON FOR EXAM: Male, 63 years old. LAP HANSEL WITH IOC FLUOROSCOPY TIME (if supplied): ( 35 seconds ) minutes/seconds. 23.84 mGy TECHNIQUE: An intraoperative cholangiogram was performed by the surgeon. Imaging was submitted. COMPARISON: None. FINDINGS: Mild dilatation of the common bile duct. Free flow of contrast into the duodenum. RAD/Cholangiogram/ O R,Initial IMPRESSION: Mildly dilated common bile duct. Electronically Signed: Ang Landa MD at 12:57 EST ,
[2023-07-27] MEDS: Bupivacaine 0.25% 30 ML Vial (12:00)
--- NOTE | 2023-07-27 12:20 | OP.PCM_ITS ---
Report of Operation Date of Procedure: 07/27/23 Pre-Operative Diagnosis: Cholelithiasis Post-Operative Diagnosis: chronic cholecystitis Surgery/Procedure Performed:: Laparoscopic cholecystectomy with cholangiogram Description of Surgical Findings:: Very inflamed gallbladder with adhesions to the surrounding fat. Possible dilated common duct on cholangiogram. Type of Anesthesia: General/Regional Specimen's removed: Gallbladder Estimated Blood Loss (mL): 50 Description of Procedure: After obtaining informed consent patient was brought back to the operating room. General anesthesia was induced. The abdomen was prepped and draped in usual sterile fashion. A small midline incision was made superior to the umbilicus and deepened to the level of fascia. The fascia was elevated and incised. Next the peritoneum was elevated and incised in the same fashion. Finger sweep was performed and the Bray trocar was placed into the abdomen. The balloon was inflated. The abdomen was inflated to 15 mmHg. Next a camera was introduced into the abdomen and the abdomen was inspected. Next under direct visualization three 5-mm ports were placed one subxiphoid and 2 subcostal. The gallbladder was very inflamed and there were adhesions from the surrounding fat. These were taken down. The gallbladder was unable to grasped sinus contents were aspirated using aspirating needle. Next the gallbladder was elevated and retracted toward the right shoulder. The peritoneum was stripped from the gallbladder. The infu ndibulum was located and retracted laterally. Next the triangle of Calot was dissected and the cystic duct and cystic artery were identified. Cholangiograms were performed. The Batista clamp was used to clamp across the infundibulum and the catheter needle was inserted into the gallbladder. Under fluoroscopy contrast was instilled into the gallbladder and the common duct, cystic duct as well as proximal hepatic ducts were identified. There was good filling of the duodenum. There were no filling defects noted in the common bile duct. The clamp was removed as well as the needle and the infundibulum was grasped once more. Three hemolock clips were placed across the cystic duct. The cystic duct was then divided leaving 2 clips on the stump. The cystic artery was clipped and divided in the same fashion. The hook cautery was then used to take the gallbladder off of the gallbladder bed. Hemostasis was obtained. Argon beam was used as well as Surgicel powder and electrocautery. There was significant inflammation in the gallbladder fossa with subsequent bleeding when the gallbladder was taken off. Gallbladder fossa was irrigated and no active bleeding or bile leakage was noted. Next the camera was introduced in the subxiphoid port. An Endopouch bag was placed through the umbilical port and the gallbladder was placed into it. The gallbladder was then removed through the um bilical incision. The camera was then reinserted through the umbilical port. The gallbladder fossa was inspected once more and noted to be hemostatic with no leaking bile. The abdomen was suctioned dry. The 5 mm ports were removed under direct visualization. The umbilical port was then removed and the air was removed from the abdomen. Next using an 0 Vicryl suture the umbilical fascia was closed in a [id number] fashion. The umbilical port site was irrigated local anesthetic was administered to all the incisions. All the incisions were closed with interrupted subcuticular 4-0 Monocryl sutures followed by Steri- Strips and dressings. The patient was awoken and taken to PACU in stable condition. Due to the bleeding during the case and the amount of inflammation I will admit him for observation to the floor following surgery. Admit VTE Documentation VTE Mechan Device Prophylaxis: SCD's
[2023-07-27 14:45] LABS: Bedside Glucose 176 mg/dL (74-106)
[2023-07-27] MEDS: Acetaminophen 325 MG Tablet 650 MG PO ×2 (15:11→20:03)
[2023-07-27] MEDS: 0.9% Normal Saline (1000mL) 1,000 ML 60 ML IV (15:12)
[2023-07-27] MEDS: oxyCODONE 5 MG Tablet PO ×2 (15:12→20:04)
[2023-07-27] MEDS: hydrALAZINE 20 MG/ML Vial 10 MG IV (17:26)
[2023-07-27] MEDS: 0.9% Saline Lock 10 ML Syringe IV (17:26)
[2023-07-28] MEDS: Acetaminophen 325 MG Tablet 650 MG PO ×3 (00:01→12:48)
[2023-07-28 01:56] VITALS: O2SAT 90
[2023-07-28 02:00] VITALS: BP 128/75; PULSE 92; RESP 16; TEMP 36.8; O2SAT 96
[2023-07-28 05:33] LABS: Absolute Lymphocyte Count 1.26 X10^3/uL (0.83-4.51); Absolute Neutrophil Count 12.5 X10^3/uL (2.0-7.7); Basophil# 0.03 X10^3/uL; Basophil% 0.2 % (0-1); Hematocrit 40.5 % (40-54); Hemoglobin 13.7 g/dL (13.0-16.5); Lymphocyte # 1.26 X10^3/ul (0.83-4.51); Lymphocyte % 8.2 % (19-41); Mean Corp Hgb Conc 33.8 g/dL (32-36); Mean Corpuscular Hgb 31.1 pg (27.0-32.0); Mean Platelet Vol. 11.4 fl (6.2-12.0); Monocyte# 1.61 X10^3/uL; Monocyte% 10.4 % (0-10); NRBC Flagged by Analyzer 0 % (0-5); Neutrophil % 80.8 % (47-70); POSITIVE DIFFERENTIAL YES; Platelet Count 222 K/mm3 (150-450); RBC Distribution Width SD 43.8 fl (35.1-43.9); White Blood Count 15.5 K/mm3 (4.4-11.0)
[2023-07-28 05:44] LABS: Differential Indicated SCAN CRITERIA MET
[2023-07-28 06:07] LABS: Anion Gap 7 (5-15); BUN 15 mg/dL (7-18); BUN/Creat Ratio 13.9 RATIO (10-20); Calcium,Total 8.2 mg/dL (8.5-10.1); Chloride 105 mmol/L (98-107); Creatinine, Serum 1.08 mg/dL (0.70-1.30); EST Glomerular Filtration Rate 73 mL/min (>60); Est Glom Filt Rate - Afr Amer 88 mL/min (>60); Estimated Creatinine Clearance 77.06 ml/min; Glucose 162 mg/dL (74-106); Potassium 4.1 mmol/L (3.5-5.1); Sodium Level 137 mmol/L (136-145)
[2023-07-28 06:11] LABS: Differential Comment SCANNED
[2023-07-28 06:14] VITALS: BP 137/87; PULSE 86; RESP 16; TEMP 36.6; O2SAT 95
[2023-07-28] MEDS: 0.9% Normal Saline (1000mL) 1,000 ML 60 ML IV (06:46)
--- NOTE | 2023-07-28 08:34 | PN.SURG_ITS ---
Subjective Subjective Patient had straight catheterization overnight. On that he feels well and is tolerating some regular diet. Objective Data Objective Data Vital Signs: Vital Signs Temp Pulse Resp BP Pulse Ox O2 Del Method O2 Flow Rate 98 F 86 16 137/87 H 95 Room Air 2 07/28/23 06:14 07/28/23 06:14 07/28/23 06:14 07/28/23 06:14 07/28/23 06:14 07/28/23 06:14 07/28/23 02:00 Oxygen Flow Rate (L/min) 2 Oxygen Delivery Method Room Air Weight: 240 lb 4.862 oz Body Mass Index (BMI) 31.6 Intake & Output: Intake and Output for Last 24 Hours 07/26/23 07/27/23 07/28/23 23:59 23:59 23:59 Intake Total 422.75 / 622.75 1134 / 1134 Output Total 1200 / 1200 1150 / 1150 Balance -777.25 / -577.25 -16 / -16 Lab / Micro Data 07/28/23 04:44 07/28/23 04:44 Labs: Laboratory Results - last 24 hr 07/27/23 09:21: POC Glucose 129 H 07/27/23 14:27: POC Glucose 176 H 07/28/23 04:44: WBC 15.5 H, RBC 4.40 L, Hgb 13.7, Hct 40.5, MCV 92.0, MCH 31.1, MCHC 33.8, RDW Std Deviation 43.8, RDW Coeff of Wili 13.0, Plt Count 222, MPV 11.4, Immature Gran % (Auto) 0.400, Neut % (Auto) 80.8 H, Lymph % (Auto) 8.2 L, [place] % (Auto) 10.4 H, Eos % (Auto) 0.0, Baso % (Auto) 0.2, Absolute Neuts (auto) 12.5 H, Absolute Lymphs (auto) 1.26, Nucleated RBC % 0, Differential Comment SCANNED, Diff Path Review December, Sodium 137, Potassium 4.1, Chloride 105, Carbon Dioxide 25.0, Anion Gap 7, BUN 15, Creatinine 1.08, Estim Creat Clear Calc 77.06, Est GFR (MDRD) Af Amer 88, Est GFR (MDRD) Non-Af 73, BUN/Creatinine Ratio 13.9, Glucose 162 H, Calcium 8.2 L Radiography Diagnostic Testing: Radiology Impression Cholangiogram 07/27/23 11:01 IMPRESSION: Mildly dilated common bile duct. Electronically Signed: Ang Landa MD at 12:57 EST , Physical Exam Const oriented x3 and no apparent distress Resp normal respiratory effort GI soft to palpation and non-tender Assessment & Plan Assessment/Plan (1) Acute cholecystitis: PLAN: Patient is doing well after laparoscopic cholecystectomy. He was kept due to bleeding during the case to observe hemoglobin in the morning. His hemoglobin is stable today. He had some urinary retention overnight and had a straight catheterization. He urinated again and then postvoid residual was done and it was very large. I will start the patient on Flomax and give him a prescription. He can follow-up with urology as an outpatient. James Keller MD Pager: [facility] [address] [place] [address], [address] [place] [address] Office:
--- NOTE | 2023-07-28 08:35 | DCINST_ITS ---
Discharge Instructions Procedure Gallbladder Diet Discharge Diet: Light diet - advance as tolerated Activity Discharge Activity: May Not Drive (for 2-3 days or while taking narcotic pain medications.) and - (Do not drive, work heavy equipment or sign legal documents for 24 hours.) May shower in (days): 1 Lifting Restrictions: 20 lbs for 2 weeks Additional Activity Instructions:: Pain medication may cause nausea. You should typically eat light foods as you take your pain medications. Pain medication may also cause constipation. If this is a problem for you, please discuss with your doctor. Dressing / Incision Call your doctor if your incision/area has: Continuous Slow Oozing, Sudden Increased Bleeding, Increased Pain/ Swelling, Increased Redness and Foul Smelling Discharge Call your doctor if you observe: Fever of 101 or Higher Suture Line Care: Avoid Pulling/Pushing and Avoid Pinching/Bending Remove Dressing in: 2 days Additional Dressing/Incision Instructions:: Leave operative bandaids on for 2 days. When you remove dressing, leave Steri-Strips on until your follow-up appointment, or until the Steri-Strips fall off on their own. Follow Up Care Please Follow Up With: James Keller MD When: Please call to schedule 2 week follow up appointment. [phone] Test Results: Test results from this visit will be discussed in further detail at your follow- up appointment, if applicable. Pending Tests Upon Discharge: Referral being made to urologist for retention Discharge Plan Admission Admit Date/Time: 07/27/23 12:18 Attending Provider: James Keller Primary Care Provider: Dawit De La Garza Discharge Orders/Prescriptions Prescriptions: New acetaminophen 325 mg Tablet 650 mg PO Q4H PRN PRN (Reason: Pain 1-10 Or Fever) Qty: 0 0RF oxycodone 5 mg Tablet 5 - 10 mg PO Q4H PRN PRN (Reason: Pain Score 4-10) 5 Days Qty: 20 0RF tamsulosin 0.4 mg Capsule 0.4 mg PO DAILY@1730 20 Days Qty: 20 0RF Continued aspirin 81 mg tablet,chewable 1 tab PO DAILY Patient Comments: PT TO STOP 5 DAYS PRIOR TO SURGERY multivitamin tablet 1 tab PO QAM glimepiride 4 mg tablet 4 mg PO QAM Qty: 90 1RF Rx Instructions: administer with breakfast metformin 500 mg tablet extended release 24 hr See Rx Instructions .ROUTE .COMPLEX Qty: 90 2RF Dose Instruction: Take 1 tablet by mouth once daily Rx Instructions: Take 1 tablet by mouth once daily simvastatin 10 mg tablet 10 mg PO QHS Qty: 90 3RF Referrals / Follow Up: Dawit De La Garza, [Primary Care Provider] - Disposition Disposition (needs filled in before D/C Order can be placed): Home, Self Care
[2023-07-28] MEDS: Tamsulosin HCl 0.4 MG Capsule 0.8 MG PO (08:55)
[2023-07-28 09:03] VITALS: BP 131/74; PULSE 97; RESP 16; TEMP 36.9; O2SAT 94
--- NOTE | 2023-07-28 09:15 | NURSING ---
Called [facility] to let them know pt wanted prescriptions sent to room when they are ready.
[2023-07-28] MEDS: oxyCODONE 5 MG Tablet PO (10:07)
--- NOTE | 2023-07-28 12:15 | NURSING ---
Pt was sleeping but did awaken. Patients states he will be eating lunch and then they will go home after that. [facility] delivered Todd's prescriptions to his room.
[2023-07-28 12:45] VITALS: BP 128/78; PULSE 67; RESP 18; O2SAT 91
--- NOTE | 2023-07-28 13:45 | PHA.DC.MC.R ---
Pharmacy [facility] has performed discharge medication reconciliation and counseling for this patient. The patient's discharge medication list was reviewed for discrepancies and discrepancies were resolved. The patient was counseled on the following discharge medications and changes in medications for homegoing were reviewed. 1. TYLENOL 2. OXYCODONE 3. FLOMAX The Reason for Use, instructions for use, and potential side effects were reviewed for all new medications. The patient's questions regarding all of their medications were answered. The patient was able to verbally demonstrate an understanding of their discharge medications. Medications at Discharge Home Medications aspirin 81 mg chewable tablet 1 tab PO DAILY 11/22/17 multivitamin 1 tab PO QAM 11/22/17 simvastatin 10 mg tablet 10 mg PO QHS #90 tabs 08/10/22 glimepiride 4 mg tablet 4 mg PO QAM #90 tabs 12/15/22 metformin 500 mg tablet,extended release 24 hr See Rx Instructions .Route .COMPLEX #90 tabs 03/16/23 acetaminophen 325 mg tablet 650 mg (2 x 325 mg) PO Q4H PRN PRN Pain 1-10 Or Fever #0 tabs 07/28/23 oxycodone 5 mg tablet 5 - 10 mg (1 - 2 x 5 mg) PO Q4H PRN PRN Pain Score 4-10 5 days #20 tabs 07/28/23 tamsulosin 0.4 mg capsule 0.4 mg PO DAILY@1730 20 days #20 caps 07/28/23
[2023-07-28 13:53] LABS: Pathologist Review Reviewed
== END 2023-07-28 13:03 | disposition home or self-care (01) ==
LOC: SDC 15:08 → MS3 15:08
PROVIDERS: Admitting Provider Surgery; PCP Family Medicine; Referring Provider Surgery; Visit Provider Surgery
PROC: (CPT 47610; principal; 2023-07-27 10:15)
DX: K80.12 Calculus of gallbladder with acute and chronic cholecystitis without obstruction (principal); E11.9 Type 2 diabetes mellitus without complications; E78.00 Pure hypercholesterolemia, unspecified; Z79.84 Long term (current) use of oral hypoglycemic drugs; Z79.82 Long term (current) use of aspirin; Z79.899 Other long term (current) drug therapy
CPT/HCPCS: 47563; 00790; 36415; 74300; 76000; 80048; 82962; 85025; 88304; 93005; 94668; 96374; 99221; J7030; J7120; A4216; G0378; J2405

== ENCOUNTER → 2023-11-28 | Outpatient (CLI) | payer MEDICARE, SELFPAY ==
[2023-11-28 10:17] LABS: Mucous, Urine 0 SEEN /hpf (<or=2+)
[2023-11-28 12:45] LABS: Color, Urine Yellow (Yellow); Glucose, Dipstick Normal (Normal); Ketone-Dipstick Negative (Negative); Leukocyte Esterase-Dipstick 500 /ul (Negative); Nitrite-Dipstick Positive (Negative); Occult Blood-Urine 25 /ul (Negative); Protein-Dipstick 30 mg/dl (Negative); Urine Bilirubin Dipstick Negative (Negative); Urine Clarity Cloudy (Clear); Urine Urobilinogen 1 mg/dl (Normal)
[2023-11-28 12:56] LABS: Red Blood Cells-Urine 0-5 SEEN /hpf (0-5); Squamous Epithelial Cells - UA 0-5 SEEN /hpf (0-5)
[2023-11-28 12:57] LABS: Bacteria 1+ /hpf (None Seen); White Blood Cells 25-50 SEEN /hpf (0-5)
== END | disposition home or self-care (01) ==
LOC: BIMLAB 10:16
PROVIDERS: PCP Family Medicine; Visit Provider Family Medicine
DX: R82.90 Unspecified abnormal findings in urine (principal)
CPT/HCPCS: 81001

== ENCOUNTER 2024-03-04 10:57 | Emergency (ER) | payer MEDICARE, SELFPAY ==
[2024-03-04 10:58] VITALS: BP 160/103; PULSE 90; RESP 19; TEMP 35.6; O2SAT 99; BMI 32.0
--- NOTE | 2024-03-04 11:22 | CT_ITS ---
INDICATION: right flank pain EXAMINATION: CT ABDOMEN AND PELVIS WITHOUT CONTRAST - CT Abdomen And Pelvis W/O Contrast Injection TECHNIQUE: Helically acquired images were obtained of the abdomen and pelvis without oral or IV contrast. The protocol utilizes one or more of the following dose reduction techniques: automated exposure control, adjustment of mA and/or kV according to patient size,and/or use of iterative reconstruction technique. IV Contrast dosage and agent: None. Oral contrast: None. RADIATION DOSAGE (If Supplied By Facility): CTDIvol = ( 17.12 ) mGy, DLP = ( 958.25 ) mGycm COMPARISON: Prior study dated: 06/26/2023 FINDINGS: LOWER CHEST: Lung bases are clear. No cardiomegaly or pericardial effusion. LIVER: Diffuse hepatic steatosis No focal mass. GALLBLADDER AND BILIARY TREE: Status post cholecystectomy. No intra- or extrahepatic biliary ductal dilation. PANCREAS: No focal cystic or solid mass. SPLEEN: Normal size without focal cystic or solid mass. ADRENAL GLANDS: No nodules. KIDNEYS AND URETERS: Normal renal size and position. No hydronephrosis. PERITONEUM: No ascites or free air. No other fluid collection. BOWEL: No evidence of acute appendicitis. No stomach or bowel distension. Fecal retention. No evidence of acute diverticulitis. LYMPH NODES: No enlarged mesenteric or retroperitoneal lymph nodes. VESSELS: Aorta is non-dilated. URINARY BLADDER: Unremarkable. REPRODUCTIVE ORGANS: No pelvic masses. ABDOMINAL WALL: Very small umbilical hernia containing fat. BONES: No lytic or blastic abnormality. CT/Abdomen/Pelvis without Cont IMPRESSION: 1. No focal acute inflammatory process. 2. Status post cholecystectomy. 3. Hepatic steatosis. Electronically Signed: Robert Franklin MD at 12:37 EDT ,
--- NOTE | 2024-03-04 11:24 | ED.VIS.BACK ---
HPI History of Present Illness Chief Complaint: Back Informant: patient and spouse/S.O. Narrative Narrative: 63-year-old male started having right low back pain that he noticed relatively suddenly in the middle of the night 5 in the morning about 5 days ago. It has been steady, not colicky, and associated with no nausea or vomiting. Sometimes the pain is associated with some mild numbness in the right proximal thigh/groin but there is no pain down the right lower extremity like sciatica he has experienced on the left side at times, that is not there presently. He states occasionally he has noticed some discomfort in the right lower quadrant but for the most part he has had no abdominal pain. No urinary symptoms or troubles but states he has noticed that has been cloudy lately, and he told his doctor this during a routine visit last week. No problems with bowel movements. No jaundice, rashes, fevers or chills. He states during the day for the most part he can undergo normal activities and he does not notice it nearly as much as he does when he is lying down to sleep which seems to make it worse. He is not doing any motions to trigger the pain, but if he leans a certain way while lying down seems to improve it, specifically when he leans to the left. When he is sitting, the pain is not quite as bad. [facility] Medical History Wears hearing aid Wears glasses Diabetes High cholesterol TIA (transient ischemic attack) Non-smoker Gallstones Hyperlipemia Hearing loss Type 2 diabetes mellitus Home Medications ?Medication ?Instructions ?Recorded ?Last Taken ?Type aspirin 81 mg chewable tablet 1 tab PO DAILY 11/22/17 03/04/24 History multivitamin 1 tab PO QAM 11/22/17 03/04/24 History simvastatin 10 mg tablet 10 mg PO QHS #90 tabs 08/23/23 03/03/24 Rx metformin 500 mg tablet,extended See Rx Instructions .Route 11/28/23 03/04/24 Rx release 24 hr .COMPLEX #90 tabs glimepiride 4 mg tablet 4 mg PO QAM #90 tabs 02/27/24 03/04/24 Rx sulfamethoxazole 800 1 tab PO BID #10 TABLETS 03/04/24 Unknown Rx mg-trimethoprim 160 mg tablet tramadol 50 mg tablet 50 mg PO Q6H PRN pain 3 days #12 03/04/24 Unknown Rx tabs Allergy/AdvReac Type Severity Reaction Status Date / Time No Known Allergies Allergy Verified 03/04/24 12:52 Family History Father Cancer stomach Mother Myocardial infarction Hypertension Lupus Hyperlipemia Diabetes Brother Cancer bladder Diabetes Sister Diabetes Surgical History History of cholecystectomy History of vasectomy Status post trigger finger release History of tonsillectomy removal of lump on wrist repair nerve in wrist Social History Smoking Status: Never smoker alcohol intake: never substance use type: does not use what type of physical activity do you participate in: none ROS ROS ED Constitutional Constitutional ED: Denies chills or fever(s) Eyes Eyes: Denies change in vision or diplopia ENT ENT ED: Denies rhinorrhea or sore throat Cardiovascular Cardiovascular: Denies chest pain or palpitations Respiratory/Chest Respiratory/Chest: Denies cough or dyspnea Gastrointestinal Gastrointestinal: Denies abdominal pain, constipation, fecal incontinence, nausea or vomiting Genitourinary Genitourinary ED: Reports other Details: no urinary retention. Cloudy urine recently. ; Denies abdominal discomfort, dysuria, hematuria, urinary frequency or urinary incontinence Musculoskeletal Musculoskeletal: Reports as per HPI and back pain; Denies neck pain Integumentary Denies rash or wounds Neurologic Neurologic: Reports paresthesias; Denies headache(s) or weakness Psychiatric Psychiatric: Denies anxiety or suicidal thoughts EXAM Physical Exam Const Vital Signs: 03/04/24 10:58 Temperature 96.1 F L Temperature Source Temporal Pulse Rate 90 Respiratory Rate 19 H Blood Pressure 160/103 H Blood Pressure Mean 122 Pulse Ox 99 Oxygen Delivery Method Room Air Positive well nourished and well developed General Appearance ED: well developed and NAD HEENT Reports moist mucous membranes Negative for trauma or tenderness Eyes PERRL and EOMs intact bilaterally Neck full ROM and supple Resp normal respiratory effort and clear to auscultation bilaterally Cardio regular rate, regular rhythm and no murmurs GI normal to inspection, nondistended, normoactive bowel sounds, soft to palpation and non-tender Auscultation: normoactive bowel sounds Palpation: soft Back/Spine normal to inspection Back/Spine Narrative: Normal inspection no rashes. Patient indicates that his pain is down in the low at or below the right pelvic brim, there is no rash here and he does not have significant tenderness. No tenderness at the sciatic notch or the CVA. General Back: other FROM Lumbar Spine / Lower Back: ROM limited and straight leg raise negative bilaterally; Negative for lumbar spinal tenderness Extremity normal to inspection, full ROM and no pedal edema Extremity Narrative: Very slight length discrepancy between the lower extremities with the right lower being 0.5-1 cm shorter when outstretched in sitting position and measuring at the ankle malleoli. General Extremety ED: Negative for edema, pulses abnormal or tenderness General Extremity: Negative for edema or pulses abnormal Neuro oriented x3 and no sensory deficits noted Sensorium / Orientation: alert Motor Exam: strength 5/5 throughout and clonus absent Deep Tendon Reflexes: Rt Patellar (L4): 2+, Lt Patellar (L4): 2+, Rt Ankle (S1): 2+ and Lt Ankle (S1): 2+ Deep Tendon Reflexes Back: Rt Patellar (L4): 2+, Lt Patellar (L4): 2+, Rt Ankle (S1): 2+ and Lt Ankle (S1): 2+ Plantar Reflex: Downgoing: bilateral Psych mental status grossly normal and thought process normal Skin no rashes or lesions noted and no wounds MDM MDM MDM Narrative Medical decision making narrative: Given the patient's cloudy urine which may certainly be incidental and unrelated, pain that is occasionally been in the right lower quadrant, and pain in his right low back that is unusual for him, I am obtaining a CT of the abdomen/pelvis as well as labs and urinalysis in order to rule out pyelonephritis and obstructive uropathy. My suspicion is that the patient has SI joint dysfunction, but performing radiography specifically of the SI joint will not likely rule this in or out. Workup shows urinary tract infection, his blood tests are noted and unremarkable. I sent a culture of his urine and started him on Bactrim, there is a 0 bacteria so unknown if this is true or not but he does have abnormal urine. With regards to the CT I reviewed the images and report which I agree with, there is no sign of hydronephrosis, obstructive uropathy, pyelonephritis, or other acute inflammatory condition. I do believe the patient has sacroiliitis or sacroiliac joint dysfunction. I am given him instructions based on this and referral to chiropractic he and/or physical therapy, the antibiotics, and a prescription for some tramadol to use at nighttime as needed for pain. He and spouse are comfortable with that overall plan. Lab Data Attestation: I reviewed the patient's lab results. Labs: Laboratory Results - last 24 hr 03/04/24 11:30 WBC 10.1 RBC 4.85 Hgb 14.8 Hct 43.8 MCV 90.3 MCH 30.5 MCHC 33.8 RDW Std Deviation 40.5 RDW Coeff of Wili 12.2 Plt Count 259 MPV 11.3 Immature Gran % (Auto) 0.400 Neut % (Auto) 64.0 Lymph % (Auto) 23.1 [place] % (Auto) 10.4 H Eos % (Auto) 1.2 Baso % (Auto) 0.9 Absolute Neuts (auto) 6.4 Absolute Lymphs (auto) 2.32 Nucleated RBC % 0 Sodium 136 Potassium 3.9 Chloride 104 Carbon Dioxide 25.0 Anion Gap 7 BUN 13 Creatinine 1.17 Estim Creat Clear Calc 81.87 Est GFR (MDRD) Af Amer 80 Est GFR (MDRD) Non-Af 66 BUN/Creatinine Ratio 11.1 Glucose 248 H Calcium 9.1 Urine Color Yellow Urine Clarity Cloudy Urine pH 7.0 Ur Specific [place] 1.010 Urine Protein Negative Urine Glucose (UA) 250 H Urine Ketones Negative Urine Occult Blood Negative Urine Nitrite Negative Urine Bilirubin Negative Urine Urobilinogen Normal Ur Leukocyte Esterase 500 H Urine RBC 5-10 SEEN Urine WBC 25-50 SEEN Ur Squamous Epith Cells 5-10 SEEN Amorphous Sediment 1+ Urine Bacteria 0 SEEN Urine Mucus 0 SEEN Radiography Diagnostic Testing: Clinical Impression(s) from Imaging Studies Abdomen/Pelvis CT 03/04/24 11:22 IMPRESSION: 1. No focal acute inflammatory process. 2. Status post cholecystectomy. 3. Hepatic steatosis. Electronically Signed: Robert Franklin MD at 12:37 EDT , Discharge Plan Triage Chief Complaint: Back ED Provider: Stephon Ramos Dx/Rx/DC Orders Clinical Impression: Acute cystitis, Sacroiliac joint dysfunction of right side Instructions: UTIs Understanding, ED Sacroiliitis Prescriptions: New sulfamethoxazole-trimethoprim 800-160 mg tablet 1 tab PO BID Qty: 10 0RF tramadol 50 mg tablet 50 mg PO Q6H PRN (Reason: pain) 3 Days Qty: 12 0RF No Action aspirin 81 mg tablet,chewable 1 tab PO DAILY Patient Comments: PT TO STOP 5 DAYS PRIOR TO SURGERY multivitamin tablet 1 tab PO QAM simvastatin 10 mg tablet 10 mg PO QHS Qty: 90 3RF metformin 500 mg tablet extended release 24 hr See Rx Instructions .ROUTE .COMPLEX Qty: 90 2RF Dose Instruction: Take 1 tablet by mouth once daily Rx Instructions: Take 1 tablet by mouth once daily glimepiride 4 mg tablet 4 mg PO QAM Qty: 90 1RF Rx Instructions: administer with breakfast Primary Care Provider: Dawit De La Garza Referrals: Dawit De La Garza, DO [Primary Care Provider] - 3-5 Days if not improving (Or may try chiropractor or physical therapy) Print Language: Swazi Disposition Disposition: Home, Self Care
[2024-03-04 11:38] LABS: Absolute Lymphocyte Count 2.32 X10^3/uL (0.83-4.51); Absolute Neutrophil Count 6.4 X10^3/uL (2.0-7.7); Basophil# 0.09 X10^3/uL; Basophil% 0.9 % (0-1); Eosinophil# 0.12 X10^3/uL; Eosinophils% 1.2 % (0-5); Hematocrit 43.8 % (40-54); Hemoglobin 14.8 g/dL (13.0-16.5); Lymphocyte # 2.32 X10^3/ul (0.83-4.51); Lymphocyte % 23.1 % (19-41); Mean Corp Hgb Conc 33.8 g/dL (32-36); Mean Corpuscular Hgb 30.5 pg (27.0-32.0); Mean Corpuscular Volume 90.3 fL (80-94); Mean Platelet Vol. 11.3 fl (6.2-12.0); Monocyte# 1.05 X10^3/uL; Monocyte% 10.4 % (0-10); NRBC Flagged by Analyzer 0 % (0-5); Neutrophil # 6.44 X10^3/uL (2.7-7.7); Platelet Count 259 K/mm3 (150-450); RBC Distribution Width CV 12.2 % (11.6-14.6); RBC Distribution Width SD 40.5 fl (35.1-43.9); Red Blood Count 4.85 M/mm3 (4.6-6.2); White Blood Count 10.1 K/mm3 (4.4-11.0)
[2024-03-04] MEDS: Ketorolac 15 MG/ML Vial 10 MG IV (11:44)
[2024-03-04 11:50] LABS: Bacteria 0 SEEN /hpf (None Seen); Mucous, Urine 0 SEEN /hpf (<or=2+)
[2024-03-04 11:52] LABS: Color, Urine Yellow (Yellow); Glucose, Dipstick 250 mg/dl (Normal); Ketone-Dipstick Negative (Negative); Leukocyte Esterase-Dipstick 500 /ul (Negative); Nitrite-Dipstick Negative (Negative); Occult Blood-Urine Negative /ul (Negative); Protein-Dipstick Negative (Negative); Urine Bilirubin Dipstick Negative (Negative); Urine Clarity Cloudy (Clear); Urine Urobilinogen Normal (Normal)
[2024-03-04 11:53] LABS: Anion Gap 7 (5-15); BUN 13 mg/dL (7-18); BUN/Creat Ratio 11.1 RATIO (10-20); Calcium,Total 9.1 mg/dL (8.5-10.1); Chloride 104 mmol/L (98-107); Creatinine, Serum 1.17 mg/dL (0.70-1.30); EST Glomerular Filtration Rate 66 mL/min (>60); Est Glom Filt Rate - Afr Amer 80 mL/min (>60); Estimated Creatinine Clearance 81.87 ml/min; Glucose 248 mg/dL (74-106); Potassium 3.9 mmol/L (3.5-5.1); Sodium Level 136 mmol/L (136-145)
[2024-03-04 12:02] LABS: Squamous Epithelial Cells - UA 5-10 SEEN /hpf (0-5); White Blood Cells 25-50 SEEN /hpf (0-5)
[2024-03-04 12:03] LABS: Amorphous Sediment 1+; Red Blood Cells-Urine 5-10 SEEN /hpf (0-5)
[2024-03-04] MEDS: Smz/Tmp Ds Tablet 1 TABLET PO (15:11)
[2024-03-04 15:14] VITALS: BP 145/95; PULSE 71; RESP 16; TEMP 36.4; O2SAT 99
== END 2024-03-04 15:17 | disposition home or self-care (01) ==
PROVIDERS: Emergency Provider Emergency Medicine; PCP Family Medicine; Visit Provider Emergency Medicine
DX: N30.00 Acute cystitis without hematuria (principal); E11.9 Type 2 diabetes mellitus without complications; E78.00 Pure hypercholesterolemia, unspecified; Z79.82 Long term (current) use of aspirin; Z79.84 Long term (current) use of oral hypoglycemic drugs; R20.2 Paresthesia of skin; Z90.49 Acquired absence of other specified parts of digestive tract; K76.0 Fatty (change of) liver, not elsewhere classified; M53.3 Sacrococcygeal disorders, not elsewhere classified
CPT/HCPCS: 74176; 80048; 81001; 85025; 87086; 96374; 99283; A4216

== ENCOUNTER → 2025-04-22 | Outpatient (CLI) | payer MEDICARE, SELFPAY ==
[2025-04-22 17:15] LABS: AST(SGOT) 29 U/L (<=37); Alanine Aminotransfer ALT/SGPT 35 U/L (<=46); Albumin, Serum 4.5 g/dL (3.4-4.8); Alkaline Phosphatase 81 U/L (40-129); Anion Gap 12 (5-15); BUN 17 mg/dL (4-19); BUN/Creat Ratio 16.0 RATIO (10-20); Calcium,Total 10.2 mg/dL (7.6-11.0); Carbon Dioxide 23.8 mmol/L (21.0-32.0); Chloride 101 mmol/L (98-108); Globulin 3.3 g/dL (2.2-4.2); Glucose 375 mg/dL (70-99); Potassium 4.4 mmol/L (3.3-5.1)
[2025-04-22 17:18] LABS: Hematocrit 43.0 % (40-54); Hemoglobin 14.7 g/dL (13.0-16.5); Immature Granulocytes Count 0.030 X10^3/uL (0.0-0.0); Mean Corp Hgb Conc 34.2 g/dL (32-36); Mean Corpuscular Volume 91.1 fL (80-94); Mean Platelet Vol. 12.2 fl (6.2-12.0); NRBC Flagged by Analyzer 0 % (0-5); Platelet Count 248 K/mm3 (150-450); RBC Distribution Width CV 12.4 % (11.6-14.6); RBC Distribution Width SD 41.1 fl (35.1-43.9); Red Blood Count 4.72 M/mm3 (4.6-6.2); White Blood Count 8.8 K/mm3 (4.4-11.0)
== END | disposition home or self-care (01) ==
LOC: BIMLAB 15:10
PROVIDERS: PCP Family Medicine; Referring Provider Family Medicine; Visit Provider Family Medicine
DX: R10.13 Epigastric pain (principal); E11.9 Type 2 diabetes mellitus without complications
CPT/HCPCS: 36415; 80053; 83036; 85025

== ENCOUNTER → 2025-05-05 | Outpatient (CLI) | payer MEDICARE, SELFPAY ==
--- NOTE | 2025-05-05 17:32 | CT_ITS ---
PROCEDURE: ABDOMEN WITH ORAL CONT ONLY 05/05/2025 REASON FOR EXAM: EPIGASTRIC PAIN TECHNIQUE: Procedure Code: [id number] Modality: CT Procedure: ABDOMEN WITH ORAL CONT ONLY coronal and Sagittal reconstruction series were provided. One or more dose reduction techniques were used (e.g., Automated exposure control, adjustment of the mA and/or kV according to patient size, use of iterative reconstruction technique RADIATION DOSE SUMMARY: CTDlvol: 11.34 mGy DLP: 376.52 mGycm COMPARISON: CT abdomen and pelvis March 04, 2024. FINDINGS: Noncontrast technique limits evaluation of the abdominal viscera. Lung bases: Clear. Liver: Liver steatosis. Gallbladder: Status post cholecystectomy. Spleen: No splenomegaly. Pancreas: Unremarkable. Adrenals: Unremarkable. Kidneys: No hydronephrosis. No nephrolithiasis. Perinephric fat stranding. Bowel: No bowel wall thickening. No bowel obstruction. Lymph nodes: No lymphadenopathy. Vasculature: No aneurysm. No dissection. Peritoneum / Retroperitoneum: No free air or free fluid. Bones: No acute bony abnormalities. CT/Abdomen WITH ORAL Cont Only IMPRESSION: Perinephric fat stranding. Correlation with urinalysis is recommended. No hydronephrosis or nephrolithiasis. No bowel wall thickening or bowel obstruction. Reading Location: [id number]
== END | disposition home or self-care (01) ==
LOC: CT 17:07
PROVIDERS: PCP Family Medicine; Referring Provider Family Medicine; Visit Provider Family Medicine
DX: R10.13 Epigastric pain (principal)
CPT/HCPCS: 74150

== ENCOUNTER 2025-07-21 08:59 | Outpatient (RCR) | payer MEDICARE, SELFPAY | END 2025-08-20 23:59 | LOC: NS 08:59 | PROVIDERS: PCP Family Medicine; Referring Provider Family Medicine; Visit Provider Family Medicine | DX: Z71.3 Dietary counseling and surveillance (principal); E11.9 Type 2 diabetes mellitus without complications | CPT/HCPCS: 97802 ==